=== PATIENT | female | born 1970 | race Caucasian/White ===

== ENCOUNTER → 2016-11-10 | Day surgery (SDC) | payer BC ==
[~2016-11-10] VITALS: Ht 165.1 cm; Wt 78.6 kg
[~2016-11-10] MED LIST: ASPIRIN (CHILDR81 MG PO; LEVOTHROID (SY25 MCG PO; LIPITOR80 MG PO; PAXIL30 MG PO; XANAX0.25 MG PO
--- NOTE | ~2016-11-10 | ECHO ---
Transesophageal Echocardiography Report (REGINALDO) Demographics Patient Name LICO KUMAR Date of Study 11/10/2016 Patient Number [id number] Visit Number [id number] Date of 1970 Room Number Gender Female Number Age 45 year(s) Referring Jostin Helms MARGARETH Cloth Shearer Favio Hernandez RVT, Physician RDCS Physician Interpreting Conor Harman Motorcycle Mechanic Physician A MD Supervising Ordering Conor Harman MD/MLP Physician A Nurse Stress Nutrition Aide Conclusions Summary The left ventricle is normal in size . Estimated EF: 60 %. The left atrium is mildly dilated. Negative bubble study. No left atrial masses including the appendage. No significant thoracic aorta atherosclerosis. Procedure Type of Study REGINALDO procedure:Color Doppler. Procedure Date Date: 11/10/2016 Start: 08:55 AM Study Location: Inpatient Portable Technical Quality: Adequate visualization Indications:CVA. Appropriate Use Criteria: 8 Patient Status: Routine Rhythm: NSR HR: 76 bpm BP: 126/72 mmHg REGINLADO Performed By: the attending and the beef grader Findings Left Ventricle The left ventricle is normal in size . Estimated EF: 60 %. Right Ventricle Normal right ventricular size and function. Left Atrium The left atrium is mildly dilated. Negative bubble study. No left atrial masses including the appendage. Right Atrium The right atrium is not dilated. Prominent Eustachian valve. Mitral Valve Trivial mitral regurgitation. Aortic Valve Normal trileaflet aortic valve. Tricuspid Valve Trivial tricuspid regurgitation . Pulmonic Valve Trivial pulmonic valve regurgitation. Pericardial Effusion No pericardial effusion. Miscellaneous No significant thoracic aorta atherosclerosis. Signature dtt: Vega Perdomo dtd: 11/10/16 [id number] Physician Self Edit
== END | disposition disaster alternative care site (69) ==
LOC: GOPD 11-09 → GSDC 07:43 → GCAR 07:43 → GOPD 08:00 → EDSTATUS 08:00
DX: R29.898 Other symptoms and signs involving the musculoskeletal system (principal); F41.9 Anxiety disorder, unspecified; E03.9 Hypothyroidism, unspecified; Z87.891 Personal history of nicotine dependence; Z86.73 Personal history of transient ischemic attack (TIA), and cerebral infarction without residual deficits; Z90.49 Acquired absence of other specified parts of digestive tract; Z98.890 Other specified postprocedural states; Z79.82 Long term (current) use of aspirin; Z79.899 Other long term (current) drug therapy
CPT/HCPCS: J2001; J7030

== ENCOUNTER → 2016-11-18 | Outpatient (CLI) | payer BC | END | disposition disaster alternative care site (69) | LOC: GRAD 14:41 | DX: I63.9 Cerebral infarction, unspecified (principal) | CPT/HCPCS: Q9967 ==